=== PATIENT | male | born 1950 | race Caucasian/White ===

== ENCOUNTER 2017-02-26 19:34 | Observation (INO) | payer OTHER ==
[~2017-02-26] VITALS: Ht 170.2 cm; Wt 81.7 kg
[2017-02-26 20:30] LABS: BASOPHIL % 0.6 % (0-2); PLATELET COUNT 146 x10^3mcL (130-400); RED CELL DISTRIBUTION WIDTH 13.3 % (11.5-14.5)
[2017-02-26 20:38] LABS: CALCIUM 8.2 mg/dL (8.5-10.1); CARBON DIOXIDE 30.3 mmol/L (21-32); CHLORIDE SERUM 111 mmol/L (98-107); CREATININE SERUM 0.8 mg/dL (0.7-1.3); GFR1 > 60 mL/min; GLUCOSE SERUM 97 mg/dL (74-106); SODIUM SERUM 147 mmol/L (136-145)
[2017-02-26 20:43] LABS: ALKALINE PHOSPHATASE 66 U/L (46-116); ALT/SGPT 17 U/L (16-63); AST/SGOT 19 U/L (15-37); BILIRUBIN TOTAL 0.2 mg/dL (0.20-1.00); TOTAL PROTEIN, SERUM 6.5 g/dL (6.4-8.2)
[2017-02-26 20:51] LABS: ALBUMIN 3.3 g/dL (3.4-5.0)
[2017-02-26 21:15] LABS: CK-MB 2.2 ng/mL (0-3.6)
[2017-02-26] MEDS ORDERED: ADV200 PO (22:14)
[2017-02-26 23:15] VITALS: BP 120/75
[2017-02-27 00:17] LABS: microscopic required? NO
[2017-02-27 00:42] LABS: UA SPECIFIC GRAVITY >=1.030 (1.005-1.035); urine erythrocyte NEGATIVE (NEGATIVE)
[2017-02-27 00:57] LABS: AMPHETAMINE QUAL UR NONE DETECTED (NEG <=1000)
[2017-02-27 03:10] LABS: CHOLESTEROL/HDL RATIO 3.3; MAGNESIUM 1.9 mg/dL (1.8-2.4)
[2017-02-27 05:41] VITALS: BP 104/66
[2017-02-27 06:31] LABS: CALCIUM 8.3 mg/dL (8.5-10.1); CARBON DIOXIDE 27.1 mmol/L (21-32); CHLORIDE SERUM 111 mmol/L (98-107); CREATININE SERUM 0.7 mg/dL (0.7-1.3); GFR1 > 60 mL/min; GLUCOSE SERUM 83 mg/dL (74-106); POTASSIUM SERUM 3.9 mmol/L (3.5-5.1); SODIUM SERUM 146 mmol/L (136-145)
[2017-02-27 06:33] LABS: BASOPHIL % 0.6 % (0-2); RED CELL DISTRIBUTION WIDTH 13.3 % (11.5-14.5)
[2017-02-27 06:38] LABS: PLATELET COUNT 126 x10^3mcL (130-400)
[2017-02-27 10:20] VITALS: BP 117/77
[2017-02-27 12:20] VITALS: BP 129/83
[2017-02-27 18:00] VITALS: BP 112/75
[2017-02-27 23:31] VITALS: BP 99/72
[2017-02-28 06:31] VITALS: BP 115/75
[2017-02-28 13:26] VITALS: BP 99/57
[2017-02-28 15:34] VITALS: BP 104/60
== END 2017-02-28 16:20 | disposition other institution (70) | DRG 303 ==
LOC: ED 19:34 → DU 21:57
PROVIDERS: Emergency Medicine; ADMIT Internal Medicine
DX: I25.110 Atherosclerotic heart disease of native coronary artery with unstable angina pectoris (principal); R00.1 Bradycardia, unspecified; I10 Essential (primary) hypertension; M19.90 Unspecified osteoarthritis, unspecified site; I25.2 Old myocardial infarction
CPT/HCPCS: 83880; A9500; G0378; J2270; J2550; J2785; J7030